=== PATIENT | female | born 1995 | race Two or more races ===

== ENCOUNTER 2023-12-07 00:28 | Emergency (ER) | payer OTHER ==
[~2023-12-07] VITALS: Ht 167.6 cm; Wt 88.5 kg
[2023-12-07 04:58] LABS: HEMATOCRIT 33.9 % (36.0-45.00); HEMOGLOBIN 11.2 g/dL (12.0-15.00); MEAN CELL VOLUME 89.2 fL (80.00-100.00); MEAN CORPUSCULAR HEMOGLOBIN 29.5 pg (27.00-32.0); PLATELET COUNT 260 K/uL (150-450); RED CELL DISTRIBUTION WIDTH 15.2 % (11.5-14.5)
== END 2023-12-07 06:15 | disposition home or self-care (01) ==
LOC: ER 00:29
DX: R53.81 Other malaise (principal); Z20.822 Contact with and (suspected) exposure to COVID-19